=== PATIENT | female | born 1960 | race Caucasian/White ===

== ENCOUNTER 2020-12-22 14:08 | Emergency (ER) | payer MEDICARE, OTHER | END 2020-12-22 16:03 | disposition home or self-care (01) | LOC: FER 14:08 | DX: S93.401A Sprain of unspecified ligament of right ankle, initial encounter (principal); X58.XXXA Exposure to other specified factors, initial encounter; Y92.009 Unspecified place in unspecified non-institutional (private) residence as the place of occurrence of the external cause | CPT/HCPCS: 73630 ==

== ENCOUNTER 2021-05-29 11:51 | Emergency (ER) | payer MEDICARE, OTHER | END 2021-05-29 14:38 | disposition home or self-care (01) | LOC: FER 11:51 | DX: M25.552 Pain in left hip (principal); M25.572 Pain in left ankle and joints of left foot | CPT/HCPCS: 73502; 73610 ==